=== PATIENT | female | born 1985 | race Caucasian/White ===

== ENCOUNTER 2019-07-14 14:40 | Inpatient (IN) | payer OTHER ==
[2019-07-14] MEDS ORDERED: Carboprost 250 MCG/ML AMP IM PRN (15:43)
[2019-07-14] MEDS ORDERED: Ibuprofen 800 MG TAB PO PRN (15:43)
[2019-07-14] MEDS ORDERED: Ondansetron PF 4 MG/2 ML Vial IVP PRN ×2 (15:43→22:23)
[2019-07-14] MEDS ORDERED: Lactated Ringer's 1,000 ML IV PRN (15:43)
[2019-07-14] MEDS ORDERED: Lidocaine 1% (PF) 30 ML VIAL SC PRN (15:43)
[2019-07-14] MEDS ORDERED: HYDROcodone/Acetaminophen 5/325 mg Tablet PO PRN ×4 (15:43→22:23)
[2019-07-14] MEDS ORDERED: Promethazine HCl 25 MG/ML VIAL IM PRN (15:43)
[2019-07-14] MEDS ORDERED: Diphenoxylate HCl/Atropine Tablet PO PRN ×2 (15:43)
[2019-07-14] MEDS ORDERED: Methylergonovine 0.2 MG/ML VIAL IM PRN ×2 (15:43→22:23)
[2019-07-14] MEDS ORDERED: NS / Oxytocin 40 units/1000ml 1,000 ML IV PRN (15:43)
[2019-07-14] MEDS ORDERED: hydrALAZINE 20 MG/ML VIAL SLOW IVP PRN ×2 (15:43→22:23)
[2019-07-14] MEDS ORDERED: NS / Oxytocin 40 units/1000ml 1,000 ML ONE (15:46)
--- NOTE | 2019-07-14 15:49 | PDOC.LDHP ---
Labor and Delivery H&P Chief complaint: contractions HPI: Patient report having contractions since 0500 this morning. Her contractions were getting stronger, about every 3-4 minutes so she decided to come to the hospital. Current gestational age (weeks): 40 Dating criteria: last menstrual period Grav: 2 Para: 1 OB History Details: - 2015 7.6# Current complications: other (Uterine fibroids.) Past Medical History: Uterine fibroids. Previous surgical history: other (nasal septoplasty, tonsillectomy) Social history: drug use (THC edibles.) - Physical Exam Vital signs reviewed and normal: yes - OB Labs Blood type: O RH: positive Antibody Screen: negative HIV: negative RPR: negative HEPSAg: negative GBS: negative - Assessment L&D Assessment: term patient in labor - Plan Plan: admit to L&D (anticipate )
[2019-07-14 16:08] VITALS: BMI 27.8
[2019-07-14] MEDS ORDERED: Lidocaine 1% (PF) 30 ML VIAL ONE (16:09)
[2019-07-14 17:28] LABS: Mean Corpuscular HGB CONC 35.5 g/dL (32.0-36.0); Mean Corpuscular Hemoglobin 33.9 pg (27.0-31.0); Mean Corpuscular Volume 95.7 fL (78.0-98.0); RBC Distribution Width 12.5 % (11.5-14.5); Red Blood Cell (RBC) Count 4.13 mill/uL (4.20-5.40); White Blood Cell (WBC) Count 17.2 thou/uL (4.8-10.8)
[2019-07-14 17:37] LABS: Mean Platelet Volume 11.1 fL (7.4-10.4); Platelet Count 118 thou/uL (130-400)
[2019-07-14 18:02] LABS: Syphilis Antibody Nonreactive (Nonreactive); Syphilis Antibody Index 0.05 S/CO (<1.00 Non-Reactive)
[2019-07-14 18:07] LABS: HBSAg Index 0.15 S/CO (0-0.99); Hep B Surf Ag Non-Reactive S/CO (NonReactive)
[2019-07-14 19:34] LABS: pH (Cord, venous) 7.36 (7.32-7.43)
--- NOTE | 2019-07-14 19:54 | PDOC.OPDEL ---
OB Operative/Delivery Note Delivery Dr/Surgeon: Sylvia denton Assist: KEVIN Stanford Pre-Delivery Diagnosis: active labor Procedure/Post Delivery Dx: spontaneous vaginal delivery Weeks gestation: 40 Anesthesia: none - Findings A Sex: female Weight: 8 lb 3 oz - Additional Findings/Plan Placenta delivered: spontaneous Repaired Obstetrical Laceration: none Estimated blood loss: 200mL Compilations/Other Findings: Tight nuchal - unreducible. Decels to 70s prior to delivery. Mukesh to delivery. cord gas collected. Post delivery plan: routine recovery
[2019-07-14] MEDS ORDERED: Benzocaine-Menthol 82.5 ML CAN TOP PRN (22:23)
[2019-07-14] MEDS ORDERED: Misoprostol 200 MCG TAB VAG PRN (22:23)
[2019-07-14] MEDS ORDERED: NS / Oxytocin 40 units/1000ml 1,000 ML IV SCH (22:23)
[2019-07-14] MEDS ORDERED: Milk Of Magnesia 30 ML UDCUP PO PRN (22:23)
[2019-07-14] MEDS ORDERED: Bisacodyl 10 MG SUPP PR PRN (22:23)
[2019-07-14] MEDS: Docusate Calcium (SURFAK) 240 MG CAP PO SCH (23:34)
[2019-07-14] MEDS: Ibuprofen 800 MG TAB PO SCH (23:34)
[2019-07-15] MEDS: Ibuprofen 800 MG TAB PO SCH ×3 (06:50→20:55)
[2019-07-15] MEDS: Ferrous Sulfate 325 MG TAB PO SCH ×2 (07:44→14:11)
[2019-07-15] MEDS: Docusate Calcium (SURFAK) 240 MG CAP PO SCH ×2 (08:55→20:55)
[2019-07-15] MEDS ORDERED: Adacel (T-DAP) 0.5 ML SYRINGE IM ONE (09:00)
[2019-07-15] MEDS ORDERED: Prenatal Vitamin 1 TAB PO SCH (09:00)
[2019-07-15 20:15] VITALS: BP 116/75; TEMP 97.9
--- NOTE | 2019-07-15 20:58 | PDOC.PP ---
Post Progress Note Post Day #: 1 Subjective: patient is doing weel. Her is calm and likes to nurse and sleep. She is overall feeling well. PO intake tolerated: yes Flatus: yes Ambulation: yes Vital Signs (12 hours) Temp Pulse Resp BP Pulse Ox 07/15/19 19:02 97.9 F 90 16 116/75 97 07/15/19 17:14 98.1 F 89 16 110/70 96 07/15/19 11:55 97.7 F 83 20 112/69 Weight Weight 178 lb - Physical Examination General: NAD Cardiovascular: RRR Respiratory: clear to auscultation bilaterally Abdominal: + bowel sounds, lochia (minimal) Skin: no rash Neurological: no gross focal deficits Psychiatric: A&Ox3, normal affect Result Diagrams: 07/14/19 17:03 Additional Labs: Post Labs Blood Type O POSITIVE 07/14/19 21:00 Hep Bs Antigen Non-Reactive S/CO (NonReactive) 07/14/19 17:03 (1) (spontaneous vaginal delivery) Code(s): O80 - ENCOUNTER FOR FULL-TERM UNCOMPLICATED DELIVERY Status: Acute - Assessment/Plan A: G2 now P2 s/p complicated by tight nuchal cord P: Routine care Discharge home tonight after 24 hours if clinically appropriate
== END 2019-07-15 21:20 | disposition home or self-care (01) | DRG 807 ==
LOC: L&D/OP 14:40 → L&D-LIB 15:40 → 3SW 22:22
PROVIDERS: ADMIT Obstetrics & Gynecology; ATTEND Obstetrics & Gynecology
PROC: 10E0XZZ Delivery of Products of Conception, External Approach (ICD-10-PCS; principal; 2019-07-14)
DX: O69.1XX0 Labor and delivery complicated by cord around neck, with compression, not applicable or unspecified (principal); Z37.0 Single live birth; Z3A.40 40 weeks gestation of pregnancy
CPT/HCPCS: 36415; 82805; 85027; 86780; 86850; 86900; 86901; 87340; 90715; 99285; J2001; J2405

== ENCOUNTER 2020-06-15 11:27 | Outpatient (CLI) | payer OTHER ==
[2020-06-16 12:41] LABS: SARS-CoV-2 MS2 Positive; SARS-CoV-2 N Gene Negative; SARS-CoV-2 S Gene Negative; SARS-CoV-2 by NAA Not Detected (NotDetected); SARS-CoV-2 orf1ab Negative
== END 2020-06-15 11:28 | disposition home or self-care (01) ==
LOC: LABSCS 11:27
PROVIDERS: ATTEND Internal Medicine Gastroenterology
DX: Z01.812 Encounter for preprocedural laboratory examination (principal); Z11.59 Encounter for screening for other viral diseases
CPT/HCPCS: 87635; U0003

== ENCOUNTER 2020-06-18 08:19 | Outpatient (CLI) | payer OTHER ==
--- NOTE | 2020-06-19 07:00 | RAD ---
Barium swallow esophagram double contrast: 06/18/2020 HISTORY: 34-year-old female with dysphagia. TECHNIQUE: Upright administration of effervescent granules and thick liquid barium. Prone MEAD straw administration of thin liquid barium. Upright administration of barium tablet with water. FINDINGS: Barium tablet passes rapidly through the esophagus into the stomach. The esophagus has normal motility, distensibility, and mucosal pattern. No moderate sized or large hiatal hernia or gastroesophageal reflux is visualized. There is residue throughout the oropharyngeal mucosa, base of tongue, and in the vallecula and pirifo rm sinuses of thick liquid barium. IMPRESSION: 1.) Residue in the pharynx. 2) otherwise negative.
== END 2020-06-18 08:20 | disposition home or self-care (01) ==
LOC: RAD 08:19
PROVIDERS: ATTEND Internal Medicine Gastroenterology
DX: R13.12 Dysphagia, oropharyngeal phase (principal)
CPT/HCPCS: 74220

== ENCOUNTER 2021-12-22 14:47 | Emergency (ER) | payer OTHER ==
[2021-12-22] MEDS ORDERED: Ketorolac Tromethamine 30 MG/ML VIAL ONE (15:37)
[2021-12-22] MEDS ORDERED: HYDROcodone/Acetaminophen 5/325 mg Tablet ONE (15:37)
[2021-12-22] MEDS ORDERED: Morphine 4 MG/ML VIAL ONE (17:25)
== END 2021-12-22 17:44 | disposition home or self-care (01) ==
LOC: ERS 14:47
DX: S82.002A Unspecified fracture of left patella, initial encounter for closed fracture (principal); V00.148A Other scooter (nonmotorized) accident, initial encounter
CPT/HCPCS: 96372; J1885; J2270